=== PATIENT | male | born 1965 | race Hispanic/Latino ===

== ENCOUNTER 2018-06-10 07:31 | Emergency (ER) | payer SELFPAY ==
[2018-06-10 08:09] LABS: #Eosinphils 0.2 thou/uL (0.0-0.7); #Lymphocytes 2.2 thou/uL (1.20-3.40); #Monocytes 0.7 thou/uL (0.11-0.59); #Neutrophils 6.8 thou/uL (1.40-6.50); %Basophils 0.2 % (0.0-1.0); %Eosinophils 1.7 % (0.0-10.0); %Lymphocytes 22.1 % (21.0-51.0); %Monocytes 6.8 % (0.0-10.0); %Neutrophils 69.2 % (42.0-75.0); Hemoglobin 14.3 g/dL (14.0-18.0); Mean Corpuscular HGB CONC 35.1 g/dL (32.0-36.0); Mean Corpuscular Hemoglobin 29.9 pg (27.0-31.0); Mean Corpuscular Volume 85.3 fL (78.0-98.0); Mean Platelet Volume 8.6 fL (7.4-10.4); Platelet Count 191 thou/uL (130-400); RBC Distribution Width 12.3 % (11.5-14.5); Red Blood Cell (RBC) Count 4.77 mill/uL (4.70-6.10); White Blood Cell (WBC) Count 9.8 thou/uL (4.8-10.8)
[2018-06-10] MEDS ORDERED: Morphine 4 MG/ML VIAL ONE (08:10)
[2018-06-10] MEDS ORDERED: Ondansetron ODT 4 MG TAB ONE (08:10)
[2018-06-10 08:11] LABS: Bilirubin Negative (Negative); Blood, Urine Negative (Negative); Clarity CLEAR (Clear); Glucose, Urine (Dipstick) Negative (Negative); Leukocyte Negative (Negative); Nitrite Negative (Negative); Protein, Urine (Dipstick) Negative (Neg-Trace); pH, Urine 6.5 (5.0-9.0)
[2018-06-10 08:25] LABS: ALT (SGPT) 27 U/L (8-55); AST (SGOT) 17 U/L (5-34); Albumin 3.9 g/dL (3.5-5.0); Alkaline Phosphatase 57 U/L (40-150); Anion Gap 11 mmol/L (10-20); BUN (Urea Nitrogen) 10 mg/dL (8.4-25.7); Bilirubin, Total 0.8 mg/dL (0.2-1.2); Calc. Creatinine Clearance 0 mL/min (70-130); Calcium 8.8 mg/dL (7.8-10.44); Carbon Dioxide 25 mmol/L (22-29); Chloride 102 mmol/L (98-107); Estimated GFR-MDRD 85; Globulin 3.6 g/dL (2.4-3.5); Glucose 137 mg/dL (70-105); Lipase 21 U/L (8-78); Potassium 3.7 mmol/L (3.5-5.1); Protein, Total 7.5 g/dL (6.0-8.3); Sodium 134 mmol/L (136-145)
[2018-06-10] MEDS ORDERED: Dicyclomine 20 MG TAB ONE (09:57)
[2018-06-10 09:59] LABS: CKMB 0.3 ng/mL (0-6.6); Troponin I Less than 0.010 ng/mL (< 0.028)
--- NOTE | 2018-06-10 10:08 | CT ---
CT ABDOMEN AND PELVIS WITH CONTRAST: INDICATIONS: Low abdominal pain. Fever. COMPARISON: CT abdomen and pelvis dated 03/03/2016. TECHNIQUE: Multiple axial tomograms obtained of the abdomen and pelvis with IV enhancement. FINDINGS: Images through the lung base reveal numerous small nodules in the right lung base with reticulonodula r infiltrative change in the more posterior lower right lung base. These nodules are new when compar ed to the CT of the lung bases from 03/03/2016. Recommend dedicated CT chest for further evaluation. The liver, spleen, and pancreas appear unremarkable. The adrenal glands and kidneys are unremarkable. The urinary bladder is contracted and not adequatel y evaluated. The small bowel loops appear normal. The appendix appears normal. There is stool throughout the colon. No CT evidence of diverticulitis identified. The aorta is of n ormal caliber. No adenopathy. IMPRESSION: 1. There are numerous pulmonary nodules in the right lung base with a fine reticulonodular pattern i n the posterior gutter, on the right. These findings are new when compared to the lung bases of 05/2016. Recommend dedicated CT chest. 2. No acute intraabdominal process identified. POS: [facility]
[2018-06-10] MEDS ORDERED: ISOVUE-370 76%-LOCM 1 ML ONE (13:32)
--- NOTE | 2018-06-13 12:17 | EKG ---
Test Reason : Blood Pressure : / mmHG Vent. Rate : 093 BPM Atrial Rate : 093 BPM P-R Int : 156 ms QRS Dur : 088 ms QT Int : 350 ms P-R-T Axes : 042 013 031 degrees QTc Int : 435 ms Normal sinus rhythm Normal ECG Confirmed by KALEB SAVAGE ([id number]), editor city DARIN TAPIA ([id number] on 06/13/2018 12:17:33 PM Referred By: Confirmed By:KALEB SAVAGE
== END 2018-06-10 11:02 | disposition home or self-care (01) ==
LOC: ERS 07:31
DX: R10.31 Right lower quadrant pain (principal); R10.32 Left lower quadrant pain; R50.9 Fever, unspecified
CPT/HCPCS: 74177; 80053; 81003; 82553; 83605; 83690; 84484; 85025; 93005; 96361; 96374; J2270; Q0162

== ENCOUNTER 2023-06-11 22:43 | Emergency (ER) | payer SELFPAY ==
[2023-06-11] MEDS ORDERED: Ketorolac Tromethamine 30 MG/ML VIAL ONE (23:25)
== END 2023-06-12 00:45 | disposition home or self-care (01) ==
LOC: ERS 22:43
DX: M77.8 Other enthesopathies, not elsewhere classified (principal); Z87.891 Personal history of nicotine dependence
CPT/HCPCS: 96372; J1885